=== PATIENT | male | born 1985 | race Caucasian/White ===

== ENCOUNTER 2016-11-17 17:01 | Inpatient (IN) | payer OTHER ==
--- NOTE | ~2016-11-17 | TN ---
Unit #: [id number] #: [id number] Patient: YAN GORE [id number] [facility] [address] [place] [address] [id number] I MR#: [id number] NAME: YAN GORE ROOM: P204 Age: 31 Sex: M Admission Date: 11/17/2016 : 1985 Discharge Date: 11/22/2016 Attending Physician: Paulette Chavarria M.D. Primary Care Physician: Self Referral-Refer Use Only LOC TRANSFER NOTE DATE OF SERVICE: 11/26/2016 IDENTIFYING DATA Mr. Gore is a 31-year-old single white male, who was stepped down to the outpatient treatment program from the adult inpatient psychiatric unit, where he was hospitalized under my care from 11/17/2016 through 11/22/2016 and was brought to the hospital stating that he wants to detox from alcohol and that he has been drinking at least 2 pints of vodka a day and has struggled with alcohol for a long time and has been bingeing even more than usual for the last couple of weeks and was having some acute withdrawals and scored 16 on CIWA and was medically detoxed and stabilized on the medications and stepped down to the outpatient treatment program. When seen by me, the patient was seen to be doing fairly well and reports that he has been calm and sober particularly since he left the hospital and has been staying in a structured environment and denies any relapses. He also denies any depression and also denied having any suicidal or homicidal ideations, though he has history of suicide in the family as his father completed suicide. SUBSTANCE ABUSE HISTORY The patient has history of alcohol, cannabis, cocaine, acid, and amphetamine abuse, and currently alcohol has been his drug of choice as reports that he has been drinking since he was 17 years old and was drinking 2 pints of vodka a day before he was hospitalized on 11/17/2016 and was medically detoxed. He since then has not relapsed and he is currently sober since 11/12/2016. PAST MEDICAL HISTORY The patient's medical history is significant for Crohn disease. ALLERGIES Remicade. PERSONAL AND SOCIAL HISTORY A 31-year-old white male, who reports that he is single, unemployed, and lives at home with his uncle and has fairly decent social support system. MENTAL STATUS EXAMINATION Young white male who was casually dressed with fair personal hygiene, appears to be in no acute distress or discomfort. He was awake and alert on interaction with intact orientation to time, place, and person. His mood was anxious and depressed with a congruent affect. His speech was slow and goal directed. He denies any suicidal or homicidal ideations, Unit #: [id number] #: [id number] Patient: YAN GORE and also denies any auditory or visual hallucinations. His insight and judgment remain slightly impaired. DIAGNOSTIC IMPRESSION Psychiatric: Alcohol dependence, moderate and acute withdrawals; alcohol-induced mood disorder. Medical: None. Stressors: Moderate psychosocial stressors. TREATMENT PLAN 1. The patient has presented with history of mood disorder and substance abuse. We will recommend enrolling him into the outpatient treatment program and maintaining him on his current medications and encouraging him to practice sobriety and to participate in therapy groups. 2. Supportive therapy was provided to the patient. ESTIMATED LENGTH OF STAY 14 to 21 days. ABILITY TO HELP SELF Limited. WILLINGNESS TO HELP SELF The patient appears to be willing to help self. STRENGTHS 1. Communicative. 2. Cooperative. PROBLEMS 1. Chronic dysphoric symptoms. 2. Chronic chemical dependency. 3. Poor social support system. DISCHARGE CRITERIA This will be contingent upon the patient's ability to show resolution of his depression and anxiety and his ability to stay safe and sober, particularly after discharge from the program. Dictated by... Paulette Chavarria M.D. [place]/ion TD: 11/27/2016 05:19 JOB #: [id number] LOC TRANSFER NOTE Page 1 of 1 X Paulette Chavarria MD X LOC TRANSFER NOTE
--- NOTE | ~2016-11-17 | DS ---
Unit #: [id number] #: [id number] [facility] [id number] [facility] [address] [place] [address] [id number] I MR#: [id number] NAME: YAN GORE ROOM: P204 Age: 31 Sex: M Admission Date: 11/17/2016 : 1985 Discharge Date: 11/22/2016 Attending Physician: Paulette Chavarria M.D. Primary Care Physician: Self Referral-Refer Use Only DISCHARGE SUMMARY IDENTIFYING DATA Mr. Hutchinson is a 31-year-old single white male, who is a resident of [place], [place], and was self-referred to the hospital. DISCHARGE DIAGNOSES Psychiatric: Alcohol dependence, moderate, in acute withdrawals and alcohol-induced mood disorder. Medical: Crohn disease. Stressors: Moderate psychosocial stressors. HISTORY OF PRESENT ILLNESS Please see initial psychiatric evaluation for details. PAST PSYCHIATRIC HISTORY Please see initial psychiatric evaluation for details. PAST MEDICAL HISTORY Please see initial psychiatric evaluation for details. HOSPITAL COURSE The patient was admitted to the adult chemical dependency unit at [facility] kwadwo Hern[facility]dez and was oriented to the hospital environment. Routine p.r.n. medications were initiated and he was started on the alcohol detox protocol and was also started back on his Lexapro; however, he was seen to be exhibiting bizarre behavior with restlessness, anxiety, and irritability, but was able to come out of the detox without any complications and was willing to continue treatment on an outpatient basis and as such, it was decided that he will be discharged home and will continue treatment on an outpatient basis. DISCHARGE MEDICATIONS Lexapro 10 mg a day for depression. DISCHARGE CONDITION Stable. PROGNOSIS Fair. Dictated by... Paulette Chavarria M.D. IAA/modl Unit #: [id number] #: [id number] Patient: YAN GORE TD: 11/22/2016 19:53 JOB #: [id number] DISCHARGE SUMMARY X Paulette Chavarria MD X DISCHARGE SUMMARY
--- NOTE | ~2016-11-17 | PN ---
Unit #: [id number] #: [id number] Patient: YAN GORE [id number] [facility] [address] [place] [address] [id number] MR#: [id number] NAME: YAN GORE ROOM: P204 Age: 31 Sex: M Admission Date: 11/17/2016 : 1985 Attending Physician: Paulette Chavarria M.D. Admitting Physician: Paulette Chavarria M.D. Primary Care Physician: Self Referral-Refer Use Only [facility] PROGRESS NOTES DATE OF SERVICE: 11/21/2016 SUBJECTIVE Mr. Gore is a 31-year-old white male who was seen today and chart was reviewed, and case was discussed with the staff. He has been doing fairly well with no agitation or irritability, and has been calm and cooperative with treatment recommendations and has been taking the medications and tolerating them fairly well. MENTAL STATUS EXAMINATION Young white male who was casually dressed with fair personal hygiene, appears to be in no acute distress and discomfort. He was awake and alert on interaction with intact orientation. His mood was anxious with a congruent affect. His speech was slow and goal directed. He denies any suicidal or homicidal ideations . His insight and judgment remain significantly impaired. TREATMENT PLAN 1. We will continue him on his current medications and treatment protocol. We will monitor his response and make further adjustments as needed. 2. We will continue to follow up. Dictated by... Diego Benson/ion TD: 11/22/2016 07:12 JOB #: [id number] [facility] PROGRESS NOTES X Paulette Chavarria MD PROGRESS NOTE
--- NOTE | ~2016-11-17 | PN ---
Unit #: [id number] #: [id number] Patient: YAN GORE [id number] [facility] [address] [place] [address] [id number] I MR#: [id number] NAME: YAN GORE ROOM: P204 Age: 31 Sex: M Admission Date: 11/17/2016 : 1985 Attending Physician: Paulette Chavarria M.D. Admitting Physician: Paulette Chavarria M.D. Primary Care Physician: Self Referral-Refer Use Only [facility] PROGRESS NOTES DATE November 18, 2016 DISCUSSION Mr. Gore is a 31-year-old white male, with mood disorder and substance abuse, and psychosis, who was seen today and chart was reviewed and the case was discussed with the staff. Staff reports that the patient had a rough day yesterday and had to be given p.r.n. Thorazine. Meanwhile, he has been very anxious and restless this morning and was unable to carry on any meaningful conversation and he was seen to be out of touch with reality. MENTAL STATUS EXAMINATION Young white male, who was casually dressed with fair personal hygiene and appears to be quite distressed and in discomfort. He was awake and alert on interaction with impaired attention and concentration. His mood was anxious with a congruent affect. His speech is slow and restricted in content. His thought processes are disorganized with some looseness of associations and flight of ideas. His insight and judgment remain significantly impaired. TREATMENT PLAN 1. We will continue him on his current medications and treatment protocol, and will monitor his response to the medications, and make further adjustments as needed. 2. We will continue to followup. Dictated by... Diego Benson/gurmeet TD: 11/19/2016 10:32 JOB #: [id number] Unit #: [id number] #: [id number] Patient: YAN GORE PROGRESS NOTES X Paulette Chavarria MD PROGRESS NOTE
--- NOTE | ~2016-11-17 | PN ---
Unit #: [id number] #: [id number] Patient: YAN GORE [id number] [facility] [address] [place] [address] [id number] I MR#: [id number] NAME: YAN GORE ROOM: P204 Age: 31 Sex: M Admission Date: 11/17/2016 : 1985 Attending Physician: Paulette Chavarria M.D. Admitting Physician: Paulette Chavarria M.D. Primary Care Physician: Self Referral-Refer Use Only [facility] PROGRESS NOTES DATE OF SERVICE: 11/19/2016 SUBJECTIVE Mr. Gore is a 31-year-old white male who was seen today and chart was reviewed and case was discussed with the staff. He has been anxious, withdrawn, and rather seclusive to himself. Meanwhile, he has been cooperative with treatment recommendations and has been taking the medications and tolerating them fairly well. MENTAL STATUS EXAMINATION Young white male who was casually dressed with fair personal hygiene, appears to be in distress and discomfort. He was awake and alert with impaired attention and concentration. His mood was anxious with a congruent affect. Speech was slow and restricted in content. His thought processes were disorganized with some looseness of associations and paranoid ideations. His insight and judgment remain significantly impaired. TREATMENT PLAN 1. We will continue him on his current medications and treatment protocol. We will monitor his response to the medications and make further adjustments as needed. 2. We will continue to follow up. Dictated by... Diego Benson/ion TD: 11/20/2016 16:12 JOB #: [id number] [facility] PROGRESS NOTES X Paulette Chavarria MD PROGRESS NOTE
--- NOTE | ~2016-11-17 | HP ---
Unit #: [id number] #: [id number] Patient: JUAN RAMON GORE [id number] [place] [address] [id number] I MR#: [id number] NAME: JUAN RAMON GORE ROOM: P204 Age: 31 Sex: M Admission Date: 11/17/2016 : 1985 Attending Physician: Paulette Chavarria M.D. Admitting Physician: Paulette Chavarria M.D. Primary Care Physician: Self Referral-Refer Use Only HISTORY AND PHYSICAL HISTORY OF PRESENT ILLNESS Juan Ramon is a 31-year-old male admitted to [address] [place] [address] because of his abuse of alcohol. He is detoxing. PAST MEDICAL HISTORY 1. Long history of alcohol abuse. 2. Crohn's disease. 3. History of left retinal detachment. PAST SURGICAL HISTORY Colon resection. ALLERGIES Remicade SOCIAL HISTORY Smokes 1 1/2 packs per day. Drinks at least two pints of liquor on a daily basis and admits to using marijuana daily and methamphetamine frequently. FAMILY HISTORY Medically noncontributory. REVIEW OF SYSTEMS CONSTITUTIONAL: No fever or chills. HEENT: Denies any sore throat, ear pain or runny nose. CARDIOVASCULAR: Denies chest pain, irregular heart rhythm or palpitations. CHEST: Denies shortness of breath or cough. No hemoptysis. GASTROINTESTINAL: Denies nausea, vomiting, diarrhea or chronic constipation. ENDOCRINE: Denies history of increased thirst or urination. No recent significant weight loss or gain. GENITOURINARY: Denies dysuria, frequency, or hematuria. SKIN: Denies any rashes. HEMATOLOGIC: Denies history of increased bleeding or bruising. MUSCULOSKELETAL: Denies any hot, swollen joints. No generalized muscle pain. NEUROLOGIC: Denies problems with vision or speech. No frequent, severe headaches. No numbness, tingling or weakness in any extremities. Denies loss of bladder or bowel control. CURRENT MEDICATIONS 1. Detox protocol Unit #: [id number] #: [id number] Patient: JUAN RAMON GORE 2. Brimonidine drops 1 drop q.12 hrs 3. Lexapro 10 mg daily 4. Thorazine 50 mg q.6 h. p.r.n. PHYSICAL EXAMINATION GENERAL: Alert, well-nourished, in no apparent distress. VITAL SIGNS: Blood pressure 132/84, heart rate 80, respirations 16, temperature 98.6. WEIGHT: 150 pounds. HEIGHT: 6'0". SKIN: Warm and dry without rash or lesion. HEENT: Normocephalic. TMs not viewed. Oral and nasal passages clear. Conjunctivae clear. Pupils equal, round and reactive to light and accommodation. Extraocular movements intact. NECK: Supple without lymphadenopathy or thyromegaly. HEART: Regular rate and rhythm without murmur. LUNGS: Clear. ABDOMEN: Soft, nontender. : Not done. EXTREMITIES: No evidence of cyanosis, clubbing or edema. Moves all extremities without focal deficit. NEUROLOGICAL: Grossly within normal limits. Cranial Nerves: II: Visual glover are intact. III, IV AND : Extraocular movements are intact. Pupils are equal, round and reactive to light. V: Facial sensation is grossly normal. VII: Facial movements and expression are normal. VIII: Auditory acuity grossly intact. IX, X: Uvula is midline. Phonation is normal. XI: Patient shrugs shoulders and turns head normally. XII: Tongue protrudes in the midline. Sensory and Motor Function: Sensory and motor sensation is grossly normal. Motor: moves all extremities well. Coordination: Gait is normal. Deep Tendon Reflexes: Intact. IMPRESSION Psychiatric admission RECOMMENDATIONS PSYCHIATRIC: Per psychiatrist. MEDICAL: 1. I see no contraindications to participating in facility's activities. 2. Detox per protocol. 3. Continue eye drops. MEDICAL PROGNOSIS Good. MEDICAL CONDITION Stable. Dictated by... Mervat Rodriguez P.A.-C. for Yanna Howell M.D. Unit #: [id number] #: [id number] Patient: JUAN RAMON GORE DEAN/paige TD: 11/19/2016 02:47 JOB #: [id number] HISTORY AND PHYSICAL X Mervat Rodriguez X HISTORY AND PHYSICAL
--- NOTE | ~2016-11-17 | PA ---
Unit #: [id number] #: [id number] Patient: YAN GORE [id number] [place] [address] [id number] I MR#: [id number] NAME: YAN GORE ROOM: P204 Age: 31 Sex: M Admission Date: 11/17/2016 : 1985 Date of Assessment: 11/17/2016 Attending Physician: Paulette Chavarria M.D. Admitting Physician: Paulette Chavarria M.D. Primary Care Physician: Self Referral-Refer Use Only PSYCHIATRIC ASSESSMENT DATE OF SERVICE 11/17/2016. IDENTIFYING DATA Mr. Gore is a 31-year-old single white male, who is a resident of [place], [place] and was self-referred to the hospital on a voluntary basis. CHIEF COMPLAINT "I'm detoxing from alcohol." HISTORY OF PRESENT ILLNESS Mr. Gore is a 31-year-old white male, who was self-referred to the hospital. Upon presentation, he was not accompanied by anyone. He stated that he wants to detox from alcohol and that he has been drinking at least 2 pints per day of vodka and that he has struggled from long time with alcohol and has been binging even more than usual for the past 2 weeks. He was demonstrating some active signs of withdrawals and scored 16 on his CIWA indicating significant withdrawal symptoms despite being on a course of Librium prescribed by his primary care physician. He reports that he is currently unemployed and has not been working and does report depression, anxiety, irritability, restlessness, but denies any suicidal ideations, intent, or plan. SUBSTANCE ABUSE HISTORY The patient reports history of alcohol, cannabis, cocaine, acid, and amphetamine abuse, and currently alcohol has been his drug of choice as he reports that he has been on a binge and has been drinking 2 plus pints of vodka a day. PAST PSYCHIATRIC HISTORY The patient has a history of chemical dependency treatment in [place] in the past and review of the medical records indicate that currently is not active in any treatment program. PAST MEDICAL HISTORY Significant for Crohn disease. ALLERGIES No known medication allergies. PERSONAL AND SOCIAL HISTORY A 31-year-old white male, who reports that he is single, unemployed, and Unit #: [id number] #: [id number] Patient: YAN GORE lives at home with his uncle and has fairly decent social support system. MENTAL STATUS EXAMINATION Young white male, who was casually dressed with fair personal hygiene, appears to be in no acute distress or discomfort. He was awake and alert on interaction with intact orientation to time, place, and person. His mood was anxious with congruent affect. His speech was slow and restricted in content. His thought processes were disorganized with some looseness of associations and flight of ideas. He denies any suicidal or homicidal ideations, and also denies any auditory or visual hallucinations. His insight and judgment remain significantly impaired. DIAGNOSTIC IMPRESSION Psychiatric: Alcohol dependence, moderate and acute withdrawals; alcohol-induced mood disorder. Medical: Crohn disease. Stressors: Moderate psychosocial stressors. TREATMENT PLAN 1. The patient has presented with a history of mood disorder and has been decompensating and will need inpatient hospitalization for safety and stabilization. We will start him back on his home medications. We will adjust the medications and monitor response. 2. Supportive therapy was provided to the patient. ESTIMATED LENGTH OF STAY 5 to 7 days. ABILITY TO HELP SELF Limited. WILLINGNESS TO HELP SELF The patient appears to be willing to help self. STRENGTHS 1. Communicative. 2. Cooperative. PROBLEMS 1. Chronic dysphoric symptoms. 2. Chronic chemical dependency. 3. Poor social support system. DISCHARGE CRITERIA This will be contingent upon the patient's ability to show resolution of his depression and anxiety and his ability to stay safe to himself, particularly after discharge from the hospital. Dictated by... Diego Benson/ion TD: 11/18/2016 07:39 JOB #: [id number] Unit #: [id number] #: [id number] Patient: YAN GORE PSYCHIATRIC ASSESSMENT X Paulette Chavarria MD PSYCHIATRIC ASSESSMENT
--- NOTE | ~2016-11-17 | PN ---
Unit #: [id number] #: [id number] Patient: YAN GORE [id number] [facility] [address] [place] [address] [id number] I MR#: [id number] NAME: YAN GORE ROOM: P204 Age: 31 Sex: M Admission Date: 11/17/2016 : 1985 Attending Physician: Paulette Chavarria M.D. Admitting Physician: Paulette Chavarria M.D. Primary Care Physician: Self Referral-Refer Use Only [facility] PROGRESS NOTES DATE OF SERVICE 11/20/2016 DISCUSSION Mr. Gore is a 31-year-old white male who was seen today. Chart was reviewed and case was discussed with the staff. He has been anxious, withdrawn, and rather seclusive to himself. Meanwhile, he has been cooperative with the treatment recommendations and has been taking the medications and tolerating them fairly well with no reported side effects. MENTAL STATUS EXAMINATION Young white male who is casually dressed with fair personal hygiene, appears to be in no acute distress or discomfort. The patient was awake and alert on interaction with intact orientation. His mood is anxious with congruent affect. His speech is slow and goal-directed. He denies any suicidal or homicidal ideations. His insight and judgment remain slightly impaired. TREATMENT PLAN 1. We will continue him on his current medications and treatment protocol. We will monitor his response to the medications and make further adjustments as needed. 2. We will continue to follow up. Dictated by... Paulette Chavarria M.D. IAA/bzg TD: 11/21/2016 07:11 JOB #: [id number] [facility] PROGRESS NOTES X Paulette Chavarria MD PROGRESS NOTE
[2016-11-18 09:24] LABS: BASOPHIL% 0.7 % (0-2.5); EOSINOPHIL# 0.2 X10e3 (0-0.7); EOSINOPHIL% 4.1 % (0.0-7.0); HEMATOCRIT 42.8 % (38.0-50.0); HEMOGLOBIN 14.4 gm/dL (13.0-16.0); LYMPHOCYTE# 1.4 X10e3 (1.0-3.5); LYMPHOCYTE% 27.5 % (17.0-45.0); MEAN CELL VOLUME 92.3 FL (83-96); MEAN CORPUSCULAR HGB CONC 33.6 g/dL (30-36); MEAN PLATELET VOLUME 9.3 FL (6.5-11.5); MONOCYTE# 0.8 X10e3 (0-1.0); MONOCYTE% 17.1 % (3.0-12.0); NEUTROPHIL# 2.5 X10e3 (1.5-7.1); NEUTROPHIL% 50.6 % (40-75); PLATELET COUNT 144 X10e3 (140-420); RED BLOOD COUNT 4.64 X10e (3.90-5.60); RED CELL DISTRIBUTION WIDTH 14.1 % (11.0-15.5); WHITE BLOOD COUNT 4.9 X10e3 (4.0-10.5)
[2016-11-18 09:27] LABS: DIFF IND NO
[2016-11-18 09:51] LABS: THYROID STIMULATING HORMONE 1.53 uIU/ml (0.34-5.60)
[2016-11-18 09:58] LABS: FREE THYROXIN (T4) 1.12 ng/dL (0.58-1.64)
[2016-11-18 10:10] LABS: ALBUMIN SERUM 4.5 g/dL (3.5-5.0); ALKALINE PHOSPHATASE 91 U/L (32-92); ALT (SGPT) 356 U/L (10-40); AST (SGOT) 414 U/L (10-42); BILIRUBIN,TOTAL 1.8 mg/dL (0.2-2.0); BLOOD UREA NITROGEN 7 mg/dL (9-23); BUN/CREATININE RATIO 7.77; CALCIUM SERUM 9.4 mg/dL (8.4-10.2); CARBON DIOXIDE 26 mmol/L (22-31); CHLORIDE 104 mmol/L (100-111); CREATININE SERUM 0.9 mg/dL (0.6-1.4); GLOM FILT RATE Estimated ABOVE60 mL/min (>60); GLUCOSE FASTING 90 mg/dL (70-110); POTASSIUM 3.1 mmol/L (3.5-5.1); SODIUM 141 mmol/L (135-145)
[2016-11-20 12:36] LABS: URINE APPEARANCE CLEAR; URINE BILIRUBIN NEG (NEG); URINE BLOOD NEG (NEG); URINE COLOR DK YELLOW; URINE GLUCOSE NEG (NEG); URINE KETONE NEG (NEG); URINE LEUKOCYTE ESTERASE NEG (NEG); URINE NITRATE NEG (NEG); URINE PROTEIN NEG (NEG); URINE SPECIFIC GRAVITY 1.021 (1.003-1.035); URINE UROBILINOGEN 0.2 MG/DL (NEG)
[2016-11-20 13:56] LABS: AMPHETAMINE NEG (NEG); BARBITURATES NEG (NEG); BENZODIAZEPINES POS (NEG); COCAINE NEG (NEG); MARIJUANA NEG (NEG); OPIATES NEG (NEG); TRICYCLIC ANTIDEPRESSANTS NEG (NEG); U METHADONE NEG (NEG)
== END 2016-11-22 09:55 | DRG 897 ==
LOC: P2S 17:01 → POF 11-18 13:57 → P2S 11-18 14:02
PROVIDERS: Psychiatry & Neurology Psychiatry
PROC: HZ2ZZZZ Detoxification Services for Substance Abuse Treatment (ICD-10-PCS; principal; 2016-11-17)
DX: F10.239 Alcohol dependence with withdrawal, unspecified (principal); K50.90 Crohn's disease, unspecified, without complications; F10.24 Alcohol dependence with alcohol-induced mood disorder; F17.210 Nicotine dependence, cigarettes, uncomplicated
CPT/HCPCS: 80053; 80307; 81003; 84439; 84443; 85025; 86592